=== PATIENT | female | born 1975 | race Caucasian/White ===

== ENCOUNTER 2023-04-22 19:32 | Emergency (ER) | payer BC ==
[~2023-04-22] VITALS: Ht 170.2 cm; Wt 106.6 kg
[2023-04-22 19:39] VITALS: BP_SYST 121; PULSE 78; RESP 18; TEMP 97.6; O2SAT 97
[2023-04-22] MEDS ORDERED: HYDROcodone/ACETAMIN 5-325 MG TAB (NORCO/ VICODIN) PO ONE (20:45)
[2023-04-22] MEDS ORDERED: KETOROLAC TROMETHAMINE 15 MG VIAL IM ONE (20:45)
[2023-04-22] MEDS ORDERED: IBUP-1969 PO (20:59)
== END 2023-04-22 21:20 | disposition home or self-care (01) ==
LOC: SED 19:32
DX: S60.911A Unspecified superficial injury of right wrist, initial encounter (principal); Z88.1 Allergy status to other antibiotic agents; Z88.8 Allergy status to other drugs, medicaments and biological substances; Z79.899 Other long term (current) drug therapy; W10.9XXA Fall (on) (from) unspecified stairs and steps, initial encounter; Y93.89 Activity, other specified; Y92.89 Other specified places as the place of occurrence of the external cause; Y99.8 Other external cause status
CPT/HCPCS: 99283; 73110; 29125; 96372; J1885

== ENCOUNTER 2024-05-10 07:09 | Day surgery (SDC) | payer BC ==
[~2024-05-10] VITALS: Ht 170.2 cm; Wt 113.4 kg
[~2024-05-10 07:09] MED LIST: CEFAZOLIN SOD 2 GM in D5W 50 ML IV ONE; IBUP-1969 PO
[2024-05-10] MEDS ORDERED: DEXAMETHASONE SOD PHOSPHATE 4 MG/ML VIAL ONE (08:46)
[2024-05-10] MEDS ORDERED: MORPHINE 4 MG INJ. 4 MG/ML VIAL IVP PRN (09:45)
[2024-05-10] MEDS ORDERED: MEPERIDINE HCL/PF 25 MG/ML DISP.SYRIN IVP PRN (09:45)
[2024-05-10] MEDS ORDERED: ONDANSETRON HCL 4 MG/2 ML VIAL IVP PRN (09:45)
[2024-05-10] MEDS ORDERED: LR 1,000 ML IV SCH (09:45)
[2024-05-10] MEDS ORDERED: OXYCODONE/ACETAMINOPHEN 5-325 TABLET PO PRN ×2 (12:00)
[2024-05-10] MEDS ORDERED: HYDROcodone/ACETAMIN 5-325 MG TAB (NORCO/ VICODIN) PO PRN (12:00)
[2024-05-10] MEDS ORDERED: HYDROmorphone 1 MG/ML INJ. CARTRIDGE ONE (12:45)
[2024-05-10] MEDS: HYDROmorphone 1 MG/ML INJ. CARTRIDGE IVP PRN (12:50)
[2024-05-10 14:25] VITALS: O2SAT 100
[2024-05-10] MEDS ORDERED: ONDANSETRON HCL 4 MG/2 ML VIAL ONE (15:55)
[2024-05-10] MEDS: ONDANSETRON HCL 4 MG/2 ML VIAL IVP PRN (15:58)
[2024-05-10 19:40] VITALS: BP_SYST 109; PULSE 72; RESP 17
== END 2024-05-10 17:59 | disposition home or self-care (01) ==
LOC: SDS 07:09 → SMU 07:11 → SDS 17:59
PROVIDERS: ATTEND Specialist
DX: N92.1 Excessive and frequent menstruation with irregular cycle (principal); N80.03 Adenomyosis of the uterus; N72 Inflammatory disease of cervix uteri; N73.6 Female pelvic peritoneal adhesions (postinfective); Z68.39 Body mass index [BMI] 39.0-39.9, adult; D25.0 Submucous leiomyoma of uterus; I10 Essential (primary) hypertension; E66.9 Obesity, unspecified; J44.9 Chronic obstructive pulmonary disease, unspecified; G43.909 Migraine, unspecified, not intractable, without status migrainosus; K21.9 Gastro-esophageal reflux disease without esophagitis; F41.9 Anxiety disorder, unspecified; Z88.1 Allergy status to other antibiotic agents; Z88.8 Allergy status to other drugs, medicaments and biological substances; Z98.84 Bariatric surgery status; Z90.49 Acquired absence of other specified parts of digestive tract; Z98.891 History of uterine scar from previous surgery; Z79.899 Other long term (current) drug therapy
CPT/HCPCS: 87081; 58552; 88307; J3490; J0690; J1100; J2765; J2250; J2405; J2704; J0330; J3010; J1170; J7060; J7030; C1727; S2900; J1940